=== PATIENT | male | born 1965 | race Caucasian/White ===

== ENCOUNTER 2017-08-20 07:30 | Day surgery (SDC) | payer BC ==
[2017-08-20] MEDS ORDERED: LIDOCAINE 1% 2 ML INJ ID PRN (07:44)
[2017-08-20] MEDS ORDERED: LR 1,000 ML IV ONE (07:44)
--- NOTE | 2017-08-20 08:48 | PDGENHP ---
History & Physical Chief Complaint: colon cancer screning History of Present Illness: routine cc screen. hx CABG, DM, htn Pertinent Past, Social, Family History: half ppd tobacco, no alcohol. no cc in family Relevant Physical Exam: A+Ox3. CTA. S1S2, RRR no m/r/g. +BS, soft nt Cardiorespiratory Assessment: CTA, S1S2, RRR. class 3
--- NOTE | 2017-08-20 09:03 | PDANEPAE ---
ANE History of Present Illness here for screening colonoscopy ANE Past Medical History - Cardiovascular History Hx Hypertension: Yes Hx Arrhythmias: No Hx Chest Pain: No Hx Coronary Artery / Peripheral Vascular Disease: No Hx CHF / Valvular Disease: No Hx Palpitations: No - Pulmonary History Hx COPD: No Hx Asthma/Reactive Airway Disease: No Hx Recent Upper Respiratory Infection: No Hx Oxygen in Use at Home: No Hx Sleep Apnea: No Sleep Apnea Screening Result - Last Documented: Positive - Neurologic History Hx Cerebrovascular Accident: No Hx Seizures: No Hx Dementia: No - Endocrine History Hx Diabetes: Yes Endocrine History Comment: TYPE 2 - Renal History Hx Renal Disorders: No - Liver History Hx Hepatic Disorders: Yes - Neurological & Psychiatric Hx Hx Neurological and Psychiatric Disorders: No - Cancer History Hx Cancer: No - Congenital Disorder History Hx Congenital Disorders: No - GI History Hx Gastrointestinal Disorders: No Gastrointestinal History Comment: NONE - Other Health History Other Health History: NONE - Chronic Pain History Chronic Pain: No - Surgical History Prior Surgeries: QUADRUPLE BYPASS ANE Review of Systems Review of systems is: negative Review of Systems: - Exercise capacity Exercise capacity: >=4 METS METS (RN): 4 METS ANE Patient History - Allergies Allergies/Adverse Reactions: Penicillins Allergy (Intermediate, Verified 08/11/17 11:33) - Home Medications Home medications: home medication list seen and reviewed Home Medications: Atorvastatin Calcium 08/11/17 [Last Taken 08/18/17 21:00] Diazepam 08/11/17 [Last Taken Unknown] Fish Oil 1000 mg (*) 08/11/17 [Last Taken 08/13/17] Glipizide 08/11/17 [Last Taken 08/18/17] Lantus Solostar 08/11/17 [Last Taken 08/19/17 21:00 10 UNITS] Lisinopril 08/11/17 [Last Taken 08/18/17 21:00] Metformin HCl 08/11/17 [Last Taken 08/19/17 06:00] Metoprolol Tartrate 08/11/17 [Last Taken Unknown] Pioglitazone HCl 08/11/17 [Last Taken Unknown] Tramadol HCl 08/11/17 [Last Taken Unknown] - NPO status NPO Status: no food or drink >8 hours NPO Since - Liquids (Date): 08/19/17 NPO Since - Liquids (Time): 22:00 NPO Since - Solids (Date): 08/19/17 NPO Since - Solids (Time): 09:00 - Smoking Hx Smoking Status: Current every day smoker - Family Anes Hx Family Hx Anesthesia Complications: NONE ANE Labs/Vital Signs - Vital Signs Blood Pressure: 139/84 Heart Rate: 68 Respiratory Rate: 16 O2 Sat (%): 97 Height: 170.18 cm Weight: 83.007 kg ANE Physical Exam - Airway Neck exam: FROM Mallampati Score: Class 1 Mouth exam: normal dental/mouth exam - Pulmonary Pulmonary: no respiratory distress - Cardiovascular Cardiovascular: regular rate and rhythym - ASA Status ASA Status: III ANE Anesthesia Plan Anesthesia Plan: GA with mask
[2017-08-20] MEDS ORDERED: PROPOFOL/EMULSION 500 MG/50 ML BOTTLE IV ONE (09:05)
--- NOTE | 2017-08-20 09:10 | CPEKG ---
Heart Rate: 69 RR Interval: 870 P-R Interval: 172 QRSD Interval: 98 QT Interval: 388 QTC Interval: 416 P [place]: 17 QRS [place]: 89 T Wave [place]: -69 EKG Severity - ABNORMAL ECG - EKG Impression: SINUS RHYTHM EKG Impression: PROBABLE INFERIOR INFARCT, AGE INDETERMINATE EKG Impression: LATERAL LEADS ARE ALSO INVOLVED Electronically Signed By: Ketty Connelly 20-Aug-2017 10:00:23
[2017-08-20] MEDS ORDERED: fentaNYL 100 MCG/2 ML INJ ONE (09:20)
[2017-08-20] MEDS ORDERED: ONDANSETRON 4 MG/2 ML VIAL IVP PRN (09:36)
[2017-08-20] MEDS ORDERED: NALOXONE HCL 0.4 MG/ML INJ IVP PRN (09:36)
[2017-08-20] MEDS ORDERED: fentaNYL 100 MCG/2 ML INJ IVP PRN (09:36)
--- NOTE | 2017-08-20 10:08 | POSTOPPROG ---
Post Op Note Date of Operation: 08/20/17 Surgeon: Alan Piña Anesthesiologist: Gabriel TAVARES Anesthesia: Other (Specify) (IV general) Pre-op Diagnosis: cc screen Post-op Diagnosis: multiple polyps rmoved by cold snare and bx = 25 polyps total most few ml Indication: screening Procedure: Colon and snar and bx Findings: multiple polyps - largest approx 12 mm, many are 1-4 mm in size Inf/Abcess present in the surg proc area at time of surgery?: No EBL: Minimal (few ml) Total fluids administered: 500 ml LR Complications: none immediate
[2017-08-20 10:19] VITALS: TEMP 97.2
--- NOTE | 2017-08-20 10:20 | GIREPORT ---
[facility] Surgical Services - Endoscopy Department Patient Name: Cb Hill Procedure Date: 08/20/2017 9:17 AM Patient Type: Outpatient Attending / MARELY Physician: Courtney Suero Procedure: Colonoscopy Indications: Screening for colorectal malignant neoplasm, IV general Providers: Johnie Piña MD Medicines: See the Anesthesia note for documentation of the administered medicatio ns - IV general Complications: No immediate complications. Estimated blood loss: Minimal. Findings: The digital rectal exam was normal. The terminal ileum appeared normal. A 3 mm polyp was found in the mid ascending colon. The polyp was sessil e. The polyp was removed with a piecemeal technique using a cold biopsy forceps. Resection and retrieval were complete. Estimated blood loss wa s minimal. A 12 mm polyp was found in the proximal transverse colon. The polyp was sessile. The polyp was removed with a cold snare. Resection and retriev al were complete. Estimated blood loss was minimal. Four sessile polyps were found in the mid transverse colon. The polyps were 1 to 5 mm in size. These polyps were removed with a cold snare. Resecti on and retrieval were complete. Estimated blood loss was minimal. Two sessile polyps were found in the distal transverse colon. The polyp s were 3 to 5 mm in size. These polyps were removed with a cold snare. Resection and retrieval were complete. Estimated blood loss was minimal . Three sessile polyps were found in the distal transverse colon. The jerardo yps were 1 to 2 mm in size. These polyps were removed with a piecemeal tech nique using a cold biopsy forceps. Resection and retrieval were complete. Estimated blood loss was minimal. Three sessile polyps were found in the descending colon. The polyps wer e 3 to 5 mm in size. These polyps were removed with a cold snare. Resection and retrieval were complete. Estimated blood loss was minimal. Four sessile polyps were found in the sigmoid colon. The polyps were 1 to 3 mm in size. These polyps were removed with a piecemeal technique using a cold biopsy forceps. Resection and retrieval were complete. Estimated b lood loss was minimal. Seven sessile polyps were found in the rectum. The polyps were 1 to 3 m m in size. These polyps were removed with a piecemeal technique using a cold biopsy forceps. Resection and retrieval were complete. Estimated blood loss was minimal. Non-bleeding internal hemorrhoids were found during retroflexion. The exam was otherwise without abnormality. Estimated Blood Loss: Estimated blood loss was minimal. Post Op Diagnosis: - The examined portion of the ileum was normal. - One 3 mm polyp in the mid ascending colon, removed piecemeal using a cold biopsy forceps. Resected and retrieved. - One 12 mm polyp in the proximal transverse colon, removed with a cold snare. Resected and retrieved. - Four 1 to 5 mm polyps in the mid transverse colon, removed with a col d snare. Resected and retrieved. - Two 3 to 5 mm polyps in the distal transverse colon, removed with a c old snare. Resected and retrieved. - Three 1 to 2 mm polyps in the distal transverse colon, removed piecem eal using a cold biopsy forceps. Resected and retrieved. - Three 3 to 5 mm polyps in the descending colon, removed with a cold s nare. Resected and retrieved. - Four 1 to 3 mm polyps in the sigmoid colon, removed piecemeal using a cold biopsy forceps. Resected and retrieved. - Seven 1 to 3 mm polyps in the rectum, removed piecemeal using a cold biopsy forceps. Resected and retrieved. - Non-bleeding internal hemorrhoids. - The examination was otherwise normal. Recommendation: - Await pathology results. - My office will call with the pathology result with 5-7 days. If you h ave not heard from my office by 11-13, do not assume the pathology is galindo l, please call [phone] to get the pathology reults. - Repeat colonoscopy in 2 years for surveillance based on pathology res ults. - I may refer him to genetic clinic if he ahs more then 10 adenoma's on pathology. - Resume previous diet. - Patient has a contact number available for emergencies. The signs and symptoms of potential delayed complications were discussed with the pat ient. Return to normal activities tomorrow. Written discharge instructions we re provided to the patient. - Continue present medications. - Avoid Aspirin and NSAID's for 7-10 days except as used for cardic or stroke prevention. - Discharge patient to home (ambulatory). - Return to primary care physician as previously scheduled. - Thank you for allowing me to help in your patient's care. Do not hesi mike to call with any questions. Attending Participation: I personally performed the entire procedure. Wang Jett M.D Johnie Piña MD 08/20/2017 10:20:15 AM Number of Addenda: 0 Note Initiated On: 08/20/2017 9:17 AM Total Procedure Duration Time 0 hours 40 minutes 50 seconds [email or web address]
[2017-08-20 10:51] VITALS: BP 134/81; PULSE 65; RESP 13; O2SAT 95
--- NOTE | 2017-08-20 12:28 | POSTANESTH ---
Post Anesthetic Evaluation Cardiovascular Status: Normal, Stable Respiratory Status: Normal, Stable Level of Consciousness/Mental Status: Can Participate in Eval Pain Control: Adequate, Prn Tx Ordered Nausea/Vomiting Control: Adequate, Prn Tx Ordered Complications Possibly Related to Anesthesia: None Noted
== END 2017-08-20 11:17 | disposition home or self-care (01) ==
LOC: FSGY 07:30
PROVIDERS: ATTEND Internal Medicine Gastroenterology
DX: Z12.11 Encounter for screening for malignant neoplasm of colon (principal); D12.2 Benign neoplasm of ascending colon; D12.3 Benign neoplasm of transverse colon; D12.4 Benign neoplasm of descending colon; D12.5 Benign neoplasm of sigmoid colon; D12.8 Benign neoplasm of rectum; E11.9 Type 2 diabetes mellitus without complications; I10 Essential (primary) hypertension; Z95.1 Presence of aortocoronary bypass graft
CPT/HCPCS: J2704; J3010